=== PATIENT | female | born 2000 | race Caucasian/White ===

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

== ENCOUNTER 2024-02-21 18:03 | Emergency (ER) | payer OTHER ==
[~2024-02-21] VITALS: Ht 152.4 cm; Wt 52.3 kg
[2024-02-21 18:15] VITALS: BP 128/79; PULSE 74; RESP 16; TEMP 98.4
[2024-02-21] MEDS ORDERED: SULF-261 PO (19:11)
[2024-02-21] MEDS ORDERED: TOBR5DRO44 OD (19:11)
== END 2024-02-21 21:52 | disposition home or self-care (01) ==
LOC: EMS 18:03
DX: L03.213 Periorbital cellulitis (principal); H00.012 Hordeolum externum right lower eyelid
CPT/HCPCS: 99283; Z7502